=== PATIENT | female | born 1930 | race Caucasian/White ===

== ENCOUNTER 2019-11-10 10:40 | Inpatient (IN) | payer MEDICARE ==
[~2019-11-10] VITALS: Ht 160 cm; Wt 49.3 kg
[~2019-11-10 10:40] MED LIST: AMOX-291 PO; ASPI-515 PO; BLOOD PRESSURE MED PO; FAMO-79 PO; MULT-717 PO; OMEP-110 PO
[2019-11-10] MEDS ORDERED: SODIUM CHLORIDE FLUSH 10ML SYR IVF ONE (11:30)
[2019-11-10] MEDS ORDERED: CEFTRIAXONE PMX 1GM/50ML 50 ML IVPB ONE (12:00)
--- NOTE | 2019-11-10 12:00 | NUR ---
Only one set of Blood Cultures required prior to IV Abx therapy per MD Khalil.
[2019-11-10 12:07] LABS: MEAN CORPUSCULAR HEMOGLOBIN 23.8 pg (27.0-34.8); MEAN CORPUSCULAR HGB CONC 31.3 g/dL (32.4-35.8); MEAN CORPUSCULAR VOLUME 76.2 fL (80-100); MEAN PLATELET VOLUME 9.2 fL (7.4-10.4); PLATELET COUNT 734 x10^3/uL (130-400); RED BLOOD COUNT 6.04 x10^6/uL (3.82-5.3); RED CELL DISTRIBUTION WIDTH 19.2 % (9.6-15.2)
[2019-11-10 12:17] LABS: ALBUMIN 2.7 g/dL (3.4-5.0); ANION GAP 5 mmol/L (5-15); CALCIUM 8.7 mg/dL (8.5-10.1); CHLORIDE 106 mmol/L (98-107)
[2019-11-10 12:18] LABS: CREATININE 0.76 mg/dL (0.55-1.02)
[2019-11-10] MEDS ORDERED: LABETALOL 5MG/ML, 20ML IVPush PRN (12:30)
[2019-11-10] MEDS ORDERED: BACLOFEN 10 MG TABLET PO PRN (12:30)
[2019-11-10] MEDS ORDERED: TRAZODONE 50MG TABLET PO PRN (12:30)
[2019-11-10] MEDS ORDERED: CLINDAMYCIN PMX 300MG/50ML 50 ML IV ONE (12:30)
[2019-11-10] MEDS ORDERED: GUAIFENESIN/DM 200-20MG, 10ML UDC PO PRN (12:30)
[2019-11-10] MEDS ORDERED: POLYETHYLENE GLYCOL 17 GM PACKET PO PRN (12:30)
[2019-11-10] MEDS ORDERED: ONDANSETRON ODT 4 MG PO PRN (12:30)
[2019-11-10] MEDS ORDERED: hydrALAzine 20 MG/ML, 1ML IVPush PRN (12:30)
[2019-11-10] MEDS ORDERED: ONDANSETRON 2MG/ML, 2ML IVPush PRN (12:30)
[2019-11-10] MEDS ORDERED: ACETAMINOPHEN 325 MG TABLET PO PRN (12:30)
[2019-11-10 12:38] LABS: MD YES
[2019-11-10 12:40] LABS: BANDS%(MANUAL) 9 % (0-7); LYMPH#(MANUAL) 0.38 x10^3/uL (1-3.4); LYMPHS% (MANUAL) 2 % (22-44); MONOS#(MANUAL) 1.51 x10^3/uL (0.3-2.7); MONOS% (MANUAL) 8 % (2-9); SEG#(MANUAL) 15.31 x10^3/uL (1.8-6.8); SEGS% (MANUAL) 81 % (42-75)
[2019-11-10 12:41] LABS: <PLATELET ESTIMATE> INCREASED; ANISOCYTOSIS 1+; HYPOCHROMIA 1+; LARGE PLATELETS 1+; MICROCYTOSIS 1+; POLYCHROMASIA 1+
[2019-11-10 13:50] VITALS: BP 124/72
[2019-11-10] MEDS ORDERED: LIDOCAINE 1%, 10ML ONE (14:31)
[2019-11-10] MEDS: PIPERACILLIN/TAZO/PMX 3.375GM 50 ML IV SCH (17:37)
[2019-11-10 18:53] VITALS: BP 113/74
[2019-11-10] MEDS: D5%-0.45% NACL 1,000 ML IV SCH (19:44)
[2019-11-11] MEDS: PIPERACILLIN/TAZO/PMX 3.375GM 50 ML IV SCH ×3 (01:09→17:14)
[2019-11-11 01:15] VITALS: BP 126/64
[2019-11-11 04:24] LABS: CULTURE INDICATED? YES; MICROSCOPIC INDICATED
[2019-11-11 05:53] LABS: ANION GAP 5 mmol/L (5-15); CALCIUM 8.2 mg/dL (8.5-10.1); CHLORIDE 108 mmol/L (98-107)
[2019-11-11 05:56] LABS: MEAN CORPUSCULAR HEMOGLOBIN 23.9 pg (27.0-34.8); MEAN CORPUSCULAR VOLUME 77.2 fL (80-100); MEAN PLATELET VOLUME 8.9 fL (7.4-10.4); PLATELET COUNT 665 x10^3/uL (130-400)
[2019-11-11 05:57] LABS: CREATININE 0.77 mg/dL (0.55-1.02)
[2019-11-11 06:19] LABS: MD YES
[2019-11-11 06:22] LABS: <PLATELET ESTIMATE> INCREASED; ANISOCYTOSIS 1+; BAND#(MANUAL) 0.57 x10^3/uL; BANDS%(MANUAL) 2 % (0-7); HYPOCHROMIA 1+; LARGE PLATELETS 1+; LYMPH#(MANUAL) 0.86 x10^3/uL (1-3.4); LYMPHS% (MANUAL) 3 % (22-44); MICROCYTOSIS 1+; MONOS#(MANUAL) 1.72 x10^3/uL (0.3-2.7); MONOS% (MANUAL) 6 % (2-9); POLYCHROMASIA 1+; SEG#(MANUAL) 25.54 x10^3/uL (1.8-6.8); SEGS% (MANUAL) 89 % (42-75)
[2019-11-11 07:13] VITALS: BP 101/53
[2019-11-11] MEDS: D5%-0.45% NACL 1,000 ML IV SCH (10:00)
--- NOTE | 2019-11-11 13:41 | NUR ---
REC: Home with 23/03 assistance and hospice; NPO with PEG - ice chips ok for comfort Addendum: 11/11/19 at 1342 by Jody LAWSON Amended: Links added.
[2019-11-11 14:44] VITALS: BP 120/54
--- NOTE | 2019-11-11 17:17 | NUR ---
TF goal recs: Jevity 1.2 @ 45 ml/hour, begin at low rate and advance slowly to goal. MD to check electrolytes and replace prn.
[2019-11-11 19:21] VITALS: BP 123/69
[2019-11-12] MEDS: PIPERACILLIN/TAZO/PMX 3.375GM 50 ML IV SCH ×3 (01:21→17:09)
[2019-11-12 04:45] VITALS: BP 102/60
[2019-11-12 06:01] LABS: ANION GAP 7 mmol/L (5-15); CALCIUM 8.1 mg/dL (8.5-10.1); CHLORIDE 108 mmol/L (98-107); CREATININE 0.66 mg/dL (0.55-1.02)
[2019-11-12 06:02] LABS: MEAN CORPUSCULAR HEMOGLOBIN 23.6 pg (27.0-34.8); MEAN CORPUSCULAR HGB CONC 30.6 g/dL (32.4-35.8); MEAN CORPUSCULAR VOLUME 77.3 fL (80-100); PLATELET COUNT 631 x10^3/uL (130-400); RED BLOOD COUNT 5.95 x10^6/uL (3.82-5.3); RED CELL DISTRIBUTION WIDTH 19.2 % (9.6-15.2)
[2019-11-12 06:32] LABS: MD YES
[2019-11-12 06:36] LABS: LYMPH#(MANUAL) 0.45 x10^3/uL (1-3.4); LYMPHS% (MANUAL) 2 % (22-44); MONOS% (MANUAL) 4 % (2-9); SEG#(MANUAL) 21.24 x10^3/uL (1.8-6.8); SEGS% (MANUAL) 94 % (42-75)
[2019-11-12 06:37] LABS: <PLATELET ESTIMATE> INCREASED; ANISOCYTOSIS 1+; HYPOCHROMIA 1+; LARGE PLATELETS 1+; MICROCYTOSIS 1+; POLYCHROMASIA 1+
[2019-11-12 08:00] VITALS: BP 137/81
[2019-11-12] MEDS: D5%-0.45% NACL 1,000 ML IV SCH (11:25)
[2019-11-12] MEDS ORDERED: BISACODYL 10 MG SUPP PR PRN (13:00)
[2019-11-12 16:03] VITALS: BP 137/83
[2019-11-12 19:48] VITALS: BP 114/72
[2019-11-13] MEDS: PIPERACILLIN/TAZO/PMX 3.375GM 50 ML IV SCH ×3 (01:41→17:43)
[2019-11-13 02:56] VITALS: BP 125/72
[2019-11-13 06:21] LABS: MEAN CORPUSCULAR HEMOGLOBIN 23.8 pg (27.0-34.8); MEAN PLATELET VOLUME 9.3 fL (7.4-10.4); PLATELET COUNT 559 x10^3/uL (130-400); RED BLOOD COUNT 5.77 x10^6/uL (3.82-5.3); RED CELL DISTRIBUTION WIDTH 19.2 % (9.6-15.2)
[2019-11-13 06:29] LABS: ANION GAP 4 mmol/L (5-15); CHLORIDE 111 mmol/L (98-107); CREATININE 0.72 mg/dL (0.55-1.02)
[2019-11-13 06:43] LABS: MD YES
[2019-11-13 06:45] LABS: LYMPHS% (MANUAL) 6 % (22-44); MONOS% (MANUAL) 8 % (2-9); SEGS% (MANUAL) 86 % (42-75)
[2019-11-13 06:46] LABS: <PLATELET ESTIMATE> INCREASED; <PLT MORPHOLOGY> NORMAL PLT MORPH; ANISOCYTOSIS 1+; MICROCYTOSIS 1+
[2019-11-13 07:37] VITALS: BP 136/77
[2019-11-13 08:46] LABS: INTERNATIONAL NORMALIZED RATIO 1.16 (0.93-1.1); PROTHROMBIN TIME 12.3 Seconds (9.6-11.5)
[2019-11-13] MEDS: BISACODYL 10 MG SUPP PR SCH (09:00)
[2019-11-13 13:46] VITALS: BP 140/75
[2019-11-13 19:51] VITALS: BP 144/74
[2019-11-14 01:33] VITALS: BP 130/71
[2019-11-14] MEDS: PIPERACILLIN/TAZO/PMX 3.375GM 50 ML IV SCH ×3 (01:45→19:43)
[2019-11-14 03:45] LABS: ANION GAP 5 mmol/L (5-15); CALCIUM 8.3 mg/dL (8.5-10.1); CHLORIDE 110 mmol/L (98-107); CREATININE 0.47 mg/dL (0.55-1.02)
[2019-11-14 03:52] LABS: MEAN CORPUSCULAR HEMOGLOBIN 23.7 pg (27.0-34.8); MEAN CORPUSCULAR HGB CONC 30.7 g/dL (32.4-35.8); MEAN CORPUSCULAR VOLUME 77.4 fL (80-100); MEAN PLATELET VOLUME 9.2 fL (7.4-10.4); PLATELET COUNT 522 x10^3/uL (130-400); RED BLOOD COUNT 5.64 x10^6/uL (3.82-5.3); RED CELL DISTRIBUTION WIDTH 19.3 % (9.6-15.2)
[2019-11-14 04:13] LABS: BASOPHILS # (AUTO) 0.03 x10^3/uL (0-0.1); BASOPHILS % (AUTO) 0 % (0-1); EOSINOPHILS # (AUTO) 0.46 x10^3/uL (0-0.4); EOSINOPHILS % (AUTO) 2 % (1-7); LYMPHOCYTES # (AUTO) 1.28 x10^3/uL (1-3.4); LYMPHOCYTES % (AUTO) 6 % (22-44); MD SCAN; MONOCYTES # (AUTO) 1.21 x10^3/uL (0.2-0.8); MONOCYTES % (AUTO) 6 % (2-9); NEUTROPHILS # (AUTO) 17.09 x10^3/uL (1.8-6.8); NEUTROPHILS % (AUTO) 85 % (42-75)
[2019-11-14 08:00] VITALS: BP 137/84
[2019-11-14] MEDS ORDERED: PROPOFOL 10 MG/ML, 20ML ONE (09:34)
[2019-11-14] MEDS ORDERED: ONDANSETRON 2MG/ML, 2ML ONE (09:34)
[2019-11-14] MEDS ORDERED: ROCURONIUM 10MG/ML,5ML ONE (09:34)
[2019-11-14] MEDS ORDERED: SUGAMMADEX 200 MG/2 ML IVPush ONE (09:34)
[2019-11-14] MEDS: BISACODYL 10 MG SUPP PR SCH (11:07)
[2019-11-14 13:11] VITALS: BP 121/69
[2019-11-14 18:33] VITALS: BP 118/75
[2019-11-15 01:14] VITALS: BP 128/71
[2019-11-15] MEDS: PIPERACILLIN/TAZO/PMX 3.375GM 50 ML IV SCH ×3 (04:01→20:04)
[2019-11-15 07:30] VITALS: BP 128/60
[2019-11-15] MEDS: BISACODYL 10 MG SUPP PR SCH (09:00)
[2019-11-15 13:10] VITALS: BP 95/62
[2019-11-15 20:59] VITALS: BP 115/73
[2019-11-16 02:25] VITALS: BP 118/67
[2019-11-16] MEDS: PIPERACILLIN/TAZO/PMX 3.375GM 50 ML IV SCH ×3 (04:06→20:54)
[2019-11-16 07:23] LABS: MEAN CORPUSCULAR HEMOGLOBIN 23.5 pg (27.0-34.8); MEAN CORPUSCULAR VOLUME 78.5 fL (80-100); MEAN PLATELET VOLUME 9.2 fL (7.4-10.4); PLATELET COUNT 503 x10^3/uL (130-400); RED BLOOD COUNT 6.43 x10^6/uL (3.82-5.3); RED CELL DISTRIBUTION WIDTH 19.6 % (9.6-15.2)
[2019-11-16 07:28] LABS: ANION GAP 4 mmol/L (5-15); CALCIUM 8.7 mg/dL (8.5-10.1); CHLORIDE 108 mmol/L (98-107); CREATININE 0.96 mg/dL (0.55-1.02)
[2019-11-16 07:49] LABS: MD YES
[2019-11-16 07:50] LABS: EOS#(MANUAL) 0.29 x10^3/uL (0.0-0.4); EOS% (MANUAL) 1 % (1-7); LYMPH#(MANUAL) 1.43 x10^3/uL (1-3.4); LYMPHS% (MANUAL) 5 % (22-44); MONOS#(MANUAL) 0.57 x10^3/uL (0.3-2.7); MONOS% (MANUAL) 2 % (2-9); SEG#(MANUAL) 26.31 x10^3/uL (1.8-6.8); SEGS% (MANUAL) 92 % (42-75)
[2019-11-16 07:51] LABS: <PLATELET ESTIMATE> INCREASED; ANISOCYTOSIS 1+; HYPOCHROMIA 1+; LARGE PLATELETS 1+; MICROCYTOSIS 1+
[2019-11-16 07:52] LABS: MEAN CORPUSCULAR HGB CONC 29.9 g/dL (32.4-35.8)
[2019-11-16 08:13] VITALS: BP 134/77
[2019-11-16] MEDS: BISACODYL 10 MG SUPP PR SCH (08:48)
[2019-11-16 13:44] VITALS: BP 126/76
[2019-11-16 18:41] VITALS: BP 154/82
[2019-11-17 00:16] VITALS: BP 159/71
[2019-11-17] MEDS: PIPERACILLIN/TAZO/PMX 3.375GM 50 ML IV SCH ×3 (04:50→19:54)
[2019-11-17 07:22] VITALS: BP 170/79
[2019-11-17 08:48] LABS: MEAN CORPUSCULAR HEMOGLOBIN 23.8 pg (27.0-34.8); MEAN CORPUSCULAR HGB CONC 30.3 g/dL (32.4-35.8); MEAN CORPUSCULAR VOLUME 78.6 fL (80-100); MEAN PLATELET VOLUME 9.1 fL (7.4-10.4); PLATELET COUNT 442 x10^3/uL (130-400); RED BLOOD COUNT 6.14 x10^6/uL (3.82-5.3)
[2019-11-17 08:50] LABS: ALBUMIN 1.8 g/dL (3.4-5.0); CALCIUM 8.5 mg/dL (8.5-10.1)
[2019-11-17 08:53] LABS: ALANINE AMINOTRANSFERASE 11 U/L (12-78); ALKALINE PHOSPHATASE 82 U/L (45-117); BILIRUBIN,TOTAL 0.5 mg/dL (0.2-1.0); CREATININE 0.73 mg/dL (0.55-1.02); TOTAL PROTEIN 6.4 g/dL (6.4-8.2)
[2019-11-17 09:00] LABS: ANION GAP 6 mmol/L (5-15); CHLORIDE 111 mmol/L (98-107)
[2019-11-17] MEDS: BISACODYL 10 MG SUPP PR SCH (09:00)
[2019-11-17 09:27] LABS: MD YES
[2019-11-17 09:31] LABS: BAND#(MANUAL) 0.51 x10^3/uL; BANDS%(MANUAL) 2 % (0-7); LYMPH#(MANUAL) 0.25 x10^3/uL (1-3.4); LYMPHS% (MANUAL) 1 % (22-44); METAMYELOCYTES# (MANUAL) 0.25 x10^3/uL (0-0); METAMYELOCYTES% (MANUAL) 1 % (0-1); MONOS#(MANUAL) 1.52 x10^3/uL (0.3-2.7); MONOS% (MANUAL) 6 % (2-9); SEGS% (MANUAL) 90 % (42-75)
[2019-11-17 09:32] LABS: ANISOCYTOSIS 1+; HYPOCHROMIA 1+; MICROCYTOSIS 1+
[2019-11-17 09:34] LABS: <PLATELET ESTIMATE> INCREASED; <PLT MORPHOLOGY> NORMAL PLT MORPH
[2019-11-17] MEDS ORDERED: LIDOCAINE 1%, 10ML ONE (13:01)
[2019-11-17 13:02] VITALS: BP 157/83
[2019-11-17 18:41] VITALS: BP 172/81
[2019-11-18 00:36] VITALS: BP 167/83
[2019-11-18] MEDS: PIPERACILLIN/TAZO/PMX 3.375GM 50 ML IV SCH ×3 (04:15→20:16)
[2019-11-18 06:07] LABS: MEAN CORPUSCULAR HEMOGLOBIN 23.3 pg (27.0-34.8); MEAN CORPUSCULAR VOLUME 78.4 fL (80-100); PLATELET COUNT 335 x10^3/uL (130-400); RED BLOOD COUNT 6.19 x10^6/uL (3.82-5.3); RED CELL DISTRIBUTION WIDTH 18.4 % (9.6-15.2)
[2019-11-18 06:27] LABS: MEAN CORPUSCULAR HGB CONC 29.8 g/dL (32.4-35.8)
[2019-11-18 06:31] LABS: ANION GAP 2 mmol/L (5-15); CALCIUM 8.8 mg/dL (8.5-10.1); CHLORIDE 114 mmol/L (98-107); CREATININE 0.52 mg/dL (0.55-1.02)
[2019-11-18 06:56] LABS: BASOPHILS # (AUTO) 0.52 x10^3/uL (0-0.1); BASOPHILS % (AUTO) 2 % (0-1); EOSINOPHILS # (AUTO) 0.26 x10^3/uL (0-0.4); EOSINOPHILS % (AUTO) 1 % (1-7); LYMPHOCYTES # (AUTO) 1.15 x10^3/uL (1-3.4); LYMPHOCYTES % (AUTO) 5 % (22-44); MD SCAN; MONOCYTES # (AUTO) 1.72 x10^3/uL (0.2-0.8); MONOCYTES % (AUTO) 7 % (2-9); NEUTROPHILS # (AUTO) 20.33 x10^3/uL (1.8-6.8); NEUTROPHILS % (AUTO) 85 % (42-75)
[2019-11-18 08:19] VITALS: BP 173/83
[2019-11-18] MEDS: BISACODYL 10 MG SUPP PR SCH (08:25)
[2019-11-18 13:31] VITALS: BP 155/80
[2019-11-18 15:24] LABS: CELLS COUNTED 224
[2019-11-18 19:42] VITALS: BP 175/86
[2019-11-18 19:57] VITALS: BP 161/85
[2019-11-19 00:37] VITALS: BP 145/82
[2019-11-19] MEDS: PIPERACILLIN/TAZO/PMX 3.375GM 50 ML IV SCH ×2 (04:13→13:18)
[2019-11-19 05:20] LABS: ANION GAP 1 mmol/L (5-15); CALCIUM 8.5 mg/dL (8.5-10.1); CHLORIDE 111 mmol/L (98-107); CREATININE 0.49 mg/dL (0.55-1.02)
[2019-11-19 05:26] LABS: MEAN CORPUSCULAR HEMOGLOBIN 23.6 pg (27.0-34.8); MEAN CORPUSCULAR HGB CONC 30.7 g/dL (32.4-35.8); MEAN CORPUSCULAR VOLUME 76.9 fL (80-100); MEAN PLATELET VOLUME 9.4 fL (7.4-10.4); PLATELET COUNT 377 x10^3/uL (130-400); RED BLOOD COUNT 5.67 x10^6/uL (3.82-5.3); RED CELL DISTRIBUTION WIDTH 18.6 % (9.6-15.2)
[2019-11-19 06:43] LABS: BASOPHILS # (AUTO) 0.04 x10^3/uL (0-0.1); BASOPHILS % (AUTO) 0 % (0-1); EOSINOPHILS # (AUTO) 0.46 x10^3/uL (0-0.4); EOSINOPHILS % (AUTO) 3 % (1-7); LYMPHOCYTES # (AUTO) 1.04 x10^3/uL (1-3.4); LYMPHOCYTES % (AUTO) 6 % (22-44); MD SCAN; MONOCYTES # (AUTO) 0.72 x10^3/uL (0.2-0.8); MONOCYTES % (AUTO) 4 % (2-9); NEUTROPHILS % (AUTO) 88 % (42-75)
[2019-11-19 07:05] VITALS: BP 169/81
[2019-11-19] MEDS: BISACODYL 10 MG SUPP PR SCH (08:11)
[2019-11-19 13:15] VITALS: BP 165/81
== END 2019-11-19 17:28 | disposition home or self-care (01) | DRG 177 ==
LOC: ED 12:48 → 3N 13:00
PROVIDERS: ADMIT Family Medicine; ATTEND Family Medicine
PROC: 0W9B3ZZ Drainage of Left Pleural Cavity, Percutaneous Approach (ICD-10-PCS; 2019-11-10)
PROC: 0DH63UZ Insertion of Feeding Device into Stomach, Percutaneous Approach (ICD-10-PCS; principal; 2019-11-14 09:30)
PROC: 0W9B30Z Drainage of Left Pleural Cavity with Drainage Device, Percutaneous Approach (ICD-10-PCS; 2019-11-17)
DX: J69.0 Pneumonitis due to inhalation of food and vomit (principal); R53.2 Functional quadriplegia; E43 Unspecified severe protein-calorie malnutrition; J96.01 Acute respiratory failure with hypoxia; J90 Pleural effusion, not elsewhere classified; N39.0 Urinary tract infection, site not specified; B96.20 Unspecified Escherichia coli [E. coli] as the cause of diseases classified elsewhere; I10 Essential (primary) hypertension; G72.41 Inclusion body myositis [IBM]; D47.3 Essential (hemorrhagic) thrombocythemia; D72.829 Elevated white blood cell count, unspecified; R13.10 Dysphagia, unspecified
CPT/HCPCS: 32555; 32557; 36415; 71045; 74018; 74230; 80048; 80053; 81001; 82040; 82042; 82150; 82945; 83605; 83615; 83735; 83986; 84157; 85025; 85610; 87040; 87070; 87075; 87077; 87086; 87186; 87205; 88112; 88305; 89051; 93005; 93970; 99284; B4087; G0378; J2405; J2543; J2704; C1729; C1769